=== PATIENT | female | born 1960 | race Asian ===

== ENCOUNTER 2024-03-10 12:38 | Emergency (ER) | payer MEDICARE ==
[~2024-03-10] VITALS: Ht 152.4 cm; Wt 60.0 kg
[2024-03-10] MEDS: rabies vaccine (PCEC)/PF 2.5 unit kit IMVAC ONE (14:30)
[2024-03-10] MEDS: rabies immune globulin/PF 150 unit/ml inj IMVAC STA (14:34)
[2024-03-10 15:03] VITALS: BP 188/97; PULSE 84; RESP 16; TEMP 98.5; O2SAT 98
== END 2024-03-10 15:04 | disposition home or self-care (01) ==
LOC: ER 12:39
DX: S81.832A Puncture wound without foreign body, left lower leg, initial encounter (principal); W54.0XXA Bitten by dog, initial encounter; Y93.89 Activity, other specified; Y92.89 Other specified places as the place of occurrence of the external cause; Y99.8 Other external cause status
CPT/HCPCS: 90375; 90675; 96372; 99284; G0008; 90376; 90471

== ENCOUNTER 2024-03-13 10:24 | Emergency (ER) | payer MEDICARE ==
[~2024-03-13] VITALS: Ht 152.4 cm; Wt 60.6 kg
[2024-03-13 10:32] VITALS: BP 153/97; PULSE 60; RESP 16; O2SAT 98
[2024-03-13] MEDS: rabies vaccine (PCEC)/PF 2.5 unit kit IMVAC ONE (12:15)
[2024-03-13 12:29] VITALS: TEMP 98
== END 2024-03-13 12:34 | disposition home or self-care (01) ==
LOC: ER 10:25
DX: Z29.14 Encounter for prophylactic rabies immune globulin (principal); I10 Essential (primary) hypertension; W54.0XXD Bitten by dog, subsequent encounter; Y93.01 Activity, walking, marching and hiking; Y92.410 Unspecified street and highway as the place of occurrence of the external cause; Y99.8 Other external cause status
CPT/HCPCS: 90675; 99281; G0008; 90471

== ENCOUNTER 2024-03-17 10:53 | Emergency (ER) | payer MEDICARE ==
[~2024-03-17] VITALS: Ht 152.4 cm; Wt 61.4 kg
[2024-03-17] MEDS: rabies vaccine (PCEC)/PF 2.5 unit kit IMVAC ONE (11:32)
[2024-03-17 11:48] VITALS: BP 134/86; PULSE 84; RESP 16; TEMP 98.5; O2SAT 98
== END 2024-03-17 11:49 | disposition home or self-care (01) ==
LOC: ER 10:54
DX: Z29.14 Encounter for prophylactic rabies immune globulin (principal); Z20.3 Contact with and (suspected) exposure to rabies; I10 Essential (primary) hypertension
CPT/HCPCS: 90675; 99281; G0008; 90471